=== PATIENT | female | born 1995 | race Caucasian/White ===

== ENCOUNTER 2024-01-04 19:26 | Inpatient (IN) | payer OTHER, SELFPAY ==
[2024-01-04 20:03] VITALS: BMI 30.1
[2024-01-04 20:07] VITALS: BP 136/75
[2024-01-05] MEDS: TYLENOL 650 MG PO ×2 (06:05→19:48)
[2024-01-05] MEDS: PITOCIN 30 UNITS/NSS 500 ML IV (06:08)
[2024-01-05 06:10] LABS: % Basophils 0.3 % (0-2); % Eosinophils 0.7 % (0-6); % Immature Granulocytes 0.7 % (0-0.5); % Lymphocytes 20.2 % (20.5-51.1); % Monocytes 4.9 % (1.7-9.3); % Neutrophils 73.2 % (42.2-75.2); Absolute Eosinophils 0.1 10^3/uL (0-0.7); Absolute Immature Granulocytes 0.1 10^3/uL (0-0.05); Absolute Lymphocytes 2.1 10^3/uL (1.2-3.4); Absolute Monocytes 0.5 10^3/uL (0.1-0.6); Absolute Neutrophils 7.4 10^3/uL (1.4-6.5); Hematocrit 34.6 % (37.0-47.0); Hemoglobin 11.9 g/dL (12.0-16.0); Mean Corp Hgb Conc. 34.4 g/dL (33.0-37.0); Mean Corpuscular Hgb 27.2 pg (27.0-31.0); Mean Corpuscular Volume 79.2 fL (81.0-99.0); Mean Platelet Volume 10.3 fL (7.4-10.4); Nucleated Red Blood Cells % 0 %; Platelet Count 234 10^3/uL (130-400); Red Blood Cell Count 4.37 10^6/uL (4.20-5.40); White Blood Cell Count 10.1 10^3/uL (4.8-10.8)
[2024-01-05] MEDS: FENTANYL/BUPIVACAINE 100 EPIDURAL (10:28)
[2024-01-05] MEDS: SUBLIMAZE 100 MCG EPIDURAL (10:28)
[2024-01-05] MEDS: NSS (PRESERVATIVE FREE) 8 ML IV (14:00)
[2024-01-05] MEDS: PEPCID 20 MG IV (14:01)
[2024-01-05] MEDS: TUMS EX (EXTRA STRENGTH) CHEWABLE 2 TABLET PO (14:01)
[2024-01-05 16:29] LABS: Cord ABG Comment CORD BLOOD
[2024-01-05 16:35] LABS: B.E. Cord ABG -2.6 mMOL/L; HCO3 Cord ABG 26.8 mmol/L; PCO2 Cord ABG 67 mmHg; PO2 Cord ABG 10 mmHg; pH Cord ABG 7.21
[2024-01-05 16:44] LABS: O2 Saturation % Cord ABG 6.4 %
[2024-01-05 16:45] LABS: B.E. Cord ABG -3.2 mMOL/L; HCO3 Cord ABG 24.8 mmol/L; O2 Saturation % Cord ABG 17.4 %; PCO2 Cord ABG 54 mmHg; PO2 Cord ABG 13 mmHg; pH Cord ABG 7.27
[2024-01-05] MEDS: MOTRIN 600 MG PO (19:48)
[2024-01-05] MEDS: MAG-TAB SR 84 MG PO (20:04)
[2024-01-06] MEDS: MOTRIN 600 MG PO ×3 (01:25→17:54)
[2024-01-06] MEDS: TYLENOL 650 MG PO ×3 (01:25→17:54)
[2024-01-06 05:34] LABS: Hematocrit 28.4 % (37.0-47.0); Hemoglobin 9.8 g/dL (12.0-16.0)
[2024-01-06] MEDS: PRENATAL PLUS 1 TABLET PO (08:18)
[2024-01-06] MEDS: SENOKOT-S 1 TABLET PO (08:18)
[2024-01-06] MEDS: MAG-TAB SR PO (09:52)
[2024-01-06] MEDS: MAG-TAB SR 84 MG PO (20:01)
[2024-01-06] MEDS: TUMS 2 TABLET PO (23:21)
[2024-01-07] MEDS: TYLENOL 650 MG PO ×2 (00:03→06:20)
[2024-01-07] MEDS: MOTRIN 600 MG PO ×2 (00:04→06:20)
[2024-01-07] MEDS: PRENATAL PLUS PO (08:38)
[2024-01-07] MEDS: SENOKOT-S 1 TABLET PO (08:38)
[2024-01-11 13:41] LABS: Syphilis/T. pallidum Ab Reflex Negative (Negative)
== END 2024-01-07 14:46 | disposition home or self-care (01) | DRG 807 ==
LOC: LDRP 19:26
PROVIDERS: Obstetrics & Gynecology; ADMITTING PHYSICIAN Obstetrics & Gynecology
PROC: 3E033VJ Introduction of Other Hormone into Peripheral Vein, Percutaneous Approach (ICD-10-PCS; 2024-01-04)
PROC: 10D07Z6 Extraction of Products of Conception, Vacuum, Via Natural or Artificial Opening (ICD-10-PCS; 2024-01-05)
PROC: 10907ZC Drainage of Amniotic Fluid, Therapeutic from Products of Conception, Via Natural or Artificial Opening (ICD-10-PCS; 2024-01-05)
PROC: 0KQM0ZZ Repair Perineum Muscle, Open Approach (ICD-10-PCS; 2024-01-05)
DX: O76 Abnormality in fetal heart rate and rhythm complicating labor and delivery (principal); Z37.0 Single live birth; O70.1 Second degree perineal laceration during delivery; Z3A.39 39 weeks gestation of pregnancy
CPT/HCPCS: 88307; 82803; 85014; 85018; 85025; 86780; 86850; 86900; 86901